=== PATIENT | female | born 1965 | race Caucasian/White ===

== ENCOUNTER 2016-11-21 07:46 | Outpatient (CLI) | payer MEDICARE | END 2016-11-21 11:30 | LOC: D.MAMMO 07:46 | DX: Z12.31 Encounter for screening mammogram for malignant neoplasm of breast (principal) ==

== ENCOUNTER → 2017-06-21 10:59 | Outpatient (CLI) | payer MEDICARE | END | disposition home or self-care (01) | LOC: D.MRI 08:00 | DX: M54.2 Cervicalgia (principal) ==

== ENCOUNTER → 2019-05-13 20:30 | Outpatient (CLI) | payer MEDICARE | END | disposition home or self-care (01) | LOC: D.MAMMO 04-15 10:45 | PROVIDERS: ATTEND Registered Nurse Emergency | DX: Z12.31 Encounter for screening mammogram for malignant neoplasm of breast (principal) ==

== ENCOUNTER 2020-07-23 07:50 | Day surgery (SDC) | payer MEDICARE ==
[2020-07-20 16:51] LABS: BASOPHILS 0.4 % (0-2); EOSINOPHILS 1.9 % (0-7); HEMOGLOBIN 13.2 g/dL (12-16); IMMATURE GRANULOCYTES 0.1 % (0-5); LYMPHOCYTE ABS# 2.26 10x3/uL (1.18-3.74); LYMPHOCYTES 31.1 % (15-50); MCH 30.6 pg (26.0-34.0); MCHC 33.8 g/dL (31.0-37.0); MCV 90.5 fL (80.0-100.0); MEAN PLATELET VOLUME 10.4 fL (7.4-10.4); MONOCYTES 10.3 % (2-11); NEUTROPHIL ABS# 4.07 10x3/uL (1.56-6.13); NEUTROPHILS 56.2 % (40-80); PLATELET COUNT 212 10x3/uL (130-400); RBC 4.31 10x6/uL (4.00-5.40); WBC 7.3 10x3/uL (4.8-10.8)
[2020-07-20 16:59] LABS: CALC OSMOLALITY 277 mosm/kg (275-300); CALCIUM 9.2 mg/dL (8.5-10.1); CARBON DIOXIDE 29.2 mmol/L (21.0-32.0); CHLORIDE - SERUM 105 mmol/L (98-107); CREATININE - SERUM 0.7 mg/dL (0.6-1.3); GLUCOSE 93 mg/dL (74-106); POTASSIUM - SERUM 3.7 mmol/L (3.5-5.1); SODIUM 140 mmol/L (136-145); UREA NITROGEN 10 mg/dL (7-18); eGFR NON AFRICAN AMERICAN > 90 mL/min (90-120)
[~2020-07-23] VITALS: Ht 167.6 cm; Wt 61.2 kg
[~2020-07-23 07:50] MED LIST: BACLOFEN20 M1 PO; ESTRACE1 MG PO; KLONOPIN1 MG PO; LEXAPRO20 MG PO; ONDANSETRON ODT8 MG PO; PERCOCET 10-321 EAC1 PO; RIMEGEPANT 75 MG PO
[2020-07-23 08:22] VITALS: BP 94/51; Ht 167.6 cm; Wt 61.2 kg
--- NOTE | 2020-07-24 11:59 | OP ---
PATIENT NAME: MANDA MURDOCK MEDICAL RECORD: [id number] :69 LOCATION:[facility] ADMISSION DATE: SURGEON: MOI ESPINOZA DO DATE OF OPERATION: 07/23/2020 PROCEDURE PERFORMED: Left knee arthroscopy with partial medial and partial lateral meniscectomies. PREOPERATIVE DIAGNOSIS: Left knee medial and lateral meniscal tears. POSTOPERATIVE DIAGNOSIS: Left knee medial and lateral meniscal tears. INDICATIONS: Ms. Murdock is a 55-year-old female who has had left knee pain for quite some time. She had an MRI showing the above findings. She wants something done surgically as she has tried all manner of nonoperative treatments to no avail. I informed her of the risks and benefits of this. Risks including infection, bleeding, damage to nerves and vessels, retear of the meniscus, continued pain, loss of motion of the knee joint, need for further surgery, blood clots and even and she signed the consent. SURGEON: Moi Espinoza DO DESCRIPTION OF PROCEDURE: The patient was taken to the operative suite, laid in the supine position, given general anesthetic and LMA was placed. She was given 2 grams of Ancef preoperatively. Left lower extremity was prepped and draped in sterile fashion. Timeout was performed. Everyone was in agreement with the correct site, side, patient, and procedure. I then began by making an incision over the lateral portal, anterior knee inserting the trocar into the joint. I then brought the camera and inspected suprapatellar pouch, no loose body is seen in the lateral or medial gutter. I then went to the medial compartment and established a medial portal with 18-gauge spinal needle, 11-blade scalpel. Trocar was entered in the joint. I then saw the medial meniscus tear that was torn essentially from the anterior horn to the posterior horn on the undersurface. I brought in the shaver and biter and brought it back, removed the unstable portion and got back to a stable point. I then went to the lateral notch. The MCL looked good. I then figure-four'd the knee, went to the lateral knee and saw tears in the lateral meniscus as well and brought the shaver in and trimmed them back to a stable point. I then turned the suction off from water and removed the excess fluid from the knee and closed the portal sites with 4-0 Monocryl in inverted interrupted fashion. She was then dressed with Steri-Strips, Adaptic, 4 x 4, ABD, cast padding and 6-inch Angel wrap and AMANDA hose stocking up to knee. She was awakened and taken to recovery in stable condition. BLOOD LOSS: Minimal. COMPLICATIONS: None. TRANSINT:[id number] Voice Confirmation ID: [id number] DOCUMENT ID: [id number] OPERATIVE REPORT [id number] MANDA MURDOCK MICHAEL D, DO at 1159 CC: [id number] DICTATION DATE: 07/23/20 1807 ACCOUNT MANAGER SALES REPRESENTATIVE: 07/24/20 0216 [facility] 07/23/20 [id number] [place] [address]
== END 2020-07-23 16:00 | disposition home or self-care (01) ==
LOC: D.OPS 07:50
PROVIDERS: Anesthesiology; ATTEND Orthopaedic Surgery
DX: S83.282A Other tear of lateral meniscus, current injury, left knee, initial encounter (principal); S83.242A Other tear of medial meniscus, current injury, left knee, initial encounter; X58.XXXA Exposure to other specified factors, initial encounter; K21.9 Gastro-esophageal reflux disease without esophagitis